=== PATIENT | female | born 1955 | race African-American/Black ===

== ENCOUNTER 2016-07-21 03:13 | Emergency (ER) | payer MEDICARE, OTHER ==
[2016-07-21] MEDS ORDERED: Sodium Chloride 0.9% 1,000 ML ONE ×3 (03:42→09:14)
[2016-07-21 03:55] LABS: #Eosinphils 0.1 thou/uL (0.0-0.7); #Lymphocytes 0.6 thou/uL (1.20-3.40); #Monocytes 0.5 thou/uL (0.11-0.59); #Neutrophils 2.3 thou/uL (1.40-6.50); %Basophils 0.4 % (0.0-1.0); %Eosinophils 1.8 % (0.0-10.0); %Lymphocytes 17.3 % (21.0-51.0); %Monocytes 13.9 % (0.0-10.0); Hematocrit 29.7 % (36.0-47.0); Mean Platelet Volume 8.3 fL (7.4-10.4); Red Blood Cell (RBC) Count 3.69 mill/uL (4.20-5.40); White Blood Cell (WBC) Count 3.4 thou/uL (4.8-10.8)
[2016-07-21 04:07] LABS: Lactic Acid - Sepsis 1.3 mmol/L (0.5-2.2)
[2016-07-21 04:15] LABS: ALT (SGPT) 43 U/L (0-55); AST (SGOT) 82 U/L (5-34); Alkaline Phosphatase 94 U/L (40-150); Anion Gap 13 mmol/L (10-20); BUN (Urea Nitrogen) 15 mg/dL (9.8-20.1); Bilirubin, Total 0.6 mg/dL (0.2-1.2); Calc. Creatinine Clearance 0 mL/min (70-130); Calcium 8.1 mg/dL (7.8-10.44); Carbon Dioxide 20 mmol/L (23-31); Chloride 109 mmol/L (98-107); Estimated GFR-MDRD 44; Globulin 3.4 g/dL (2.4-3.5); Lipase 91 U/L (8-78); Protein, Total 5.9 g/dL (5.8-8.1)
[2016-07-21 04:32] LABS: Bilirubin Negative (Negative); Blood, Urine Negative (Negative); Glucose, Urine (Dipstick) Negative (Negative); Ketone, Urine Trace mg/dL (Negative); Nitrite Negative (Negative); Protein, Urine (Dipstick) Trace mg/dL (Neg-Trace)
[2016-07-21 04:34] LABS: RBC/HPF None Seen HPF (0-3)
[2016-07-21 04:36] LABS: Bacteria/HPF 3+ HPF (None Seen); WBC/HPF 21-50 HPF (0-3)
[2016-07-21] MEDS ORDERED: cefTRIAXone\\ROCEPHIN 1 GM VIAL ONE (04:52)
[2016-07-21] MEDS ORDERED: Sodium Chloride 0.9% 100 ML ONE (04:52)
[2016-07-21] MEDS ORDERED: Acetaminophen 500 MG TAB ONE (06:19)
--- NOTE | 2016-07-21 07:57 | CT ---
CT OF THE ABDOMEN AND PELVIS WITH CONTRAST: Date: 07/21/16 COMPARISON: 08/10/15. HISTORY: Status post cholecystectomy within the last 2 weeks with abdominal bloating. TECHNIQUE: Multiple contiguous axial images were obtained in a CT of the abdomen and pelvis with contrast. PO c ontrast was administered. Coronal reformats were performed. FINDINGS: There is a small to moderate amount of ascites. The patient is status post cholecystectomy. There is mild thickening of the wall of the duodenum. The liver has a slightly nodular contour, which may be secondary to cirrhosis. No intrahepatic biliary dilatation is seen. The spleen is enlarged measurin g at least 18.5 cm in size. There is a hypodensity in the right kidney which likely represents a cyst. The left kidney, adrenal glands, spleen, and pancreas are unremarkable. A few scattered diverticula are seen in the colon. No dilatation of the small bowel is seen. There i s no evidence of leak of the enteric contrast from the bowel. The patient is status post hysterectomy. No abdominal or pelvic lymphadenopathy are seen. Atheroscle rotic calcifications are seen in the aorta. Degenerative changes are seen in the spine. The visualized inferior thorax is unremarkable. The tracy ent has a small amount of fluid along the umbilicus which may be from prior port site. Anasarca is s een in the superficial soft tissues. IMPRESSION: 1. Interval development of mild to moderate ascites. 2. Slightly nodular appearance of the liver may be secondary to cirrhosis. 3. Splenomegaly. 4. Right renal cyst. 5. Diverticulosis. POS: [facility]
--- NOTE | 2016-07-21 07:59 | RAD ---
CHEST 1 VIEW AND ABDOMEN 2 VIEWS: HISTORY: Abdominal pain and bloating. FINDINGS/IMPRESSION: The heart size is normal. The lungs are expanded without focal areas of consolidation, pneumothorax , or pleural effusions. The patient is post cholecystectomy. No free air or differential fluid lev els are seen. A normal-appearing bowel gas pattern is present. There are degenerative changes in t he spine. POS: [facility]
[2016-07-21] MEDS ORDERED: Iopamidol 370 76% 100 ML VIAL ONE (09:00)
== END 2016-07-21 09:57 | disposition short-term general hospital (02) ==
LOC: NAV ERS 03:13
DX: N17.9 Acute kidney failure, unspecified (principal); E86.0 Dehydration; N39.0 Urinary tract infection, site not specified; E11.9 Type 2 diabetes mellitus without complications; I10 Essential (primary) hypertension; E78.5 Hyperlipidemia, unspecified; E78.00 Pure hypercholesterolemia, unspecified; F32.9 Major depressive disorder, single episode, unspecified; F20.9 Schizophrenia, unspecified; Z79.4 Long term (current) use of insulin; Z79.891 Long term (current) use of opiate analgesic; Z79.899 Other long term (current) drug therapy
CPT/HCPCS: 36415; 51701; 74022; 74177; 80053; 81003; 81015; 83605; 83690; 85025; 87040; 87077; 87086; 87186; 94760; 96360; 96361; 96365; A4353; J0696; J7050